=== PATIENT | male | born 1960 | race African-American/Black ===

== ENCOUNTER 2017-11-22 08:14 | Emergency (ER) | payer OTHER ==
[~2017-11-22] VITALS: Ht 185.4 cm; Wt 78.0 kg
[2017-11-22] MEDS ORDERED: IBUPROFEN 600MG TABLET PO ONE (09:30)
[2017-11-22 09:33] VITALS: BP 130/84
[2017-11-22 09:44] LABS: CLARITY URINE CLEAR (CLEAR); COLOR URINE YELLOW (YELLOW); KETONES URINE NEGATIVE (NEGATIVE); LEUKOCYTE ESTERASE URINE 2+ (NEGATIVE); NITRITE URINE NEGATIVE (NEGATIVE); OCCULT BLOOD URINE 2+ (NEGATIVE); PH URINE 5.5 (4.5-8.0); PROTEIN URINE NEGATIVE (NEGATIVE); SPECIFIC GRAVITY URINE 1.021 (1.005-1.030); UROBILINOGEN URINE 0.2 E.U./dL (0.2-1.0)
== END 2017-11-22 11:21 | disposition home or self-care (01) ==
LOC: ER 10:48
DX: N39.0 Urinary tract infection, site not specified (principal); M54.32 Sciatica, left side; F17.200 Nicotine dependence, unspecified, uncomplicated
CPT/HCPCS: 81003; 87086; 99284

== ENCOUNTER 2017-11-29 19:36 | Emergency (ER) | payer OTHER ==
[~2017-11-29] VITALS: Ht 185.4 cm; Wt 77.0 kg
[2017-11-30 02:16] LABS: CLARITY URINE CLOUDY (CLEAR); COLOR URINE YELLOW (YELLOW); KETONES URINE NEGATIVE (NEGATIVE); LEUKOCYTE ESTERASE URINE 2+ (NEGATIVE); NITRITE URINE POSITIVE (NEGATIVE); OCCULT BLOOD URINE 3+ (NEGATIVE); PH URINE 5.5 (4.5-8.0); PROTEIN URINE TRACE (NEGATIVE)
[2017-11-30 04:37] VITALS: BP 121/67
== END 2017-11-30 04:37 | disposition home or self-care (01) ==
LOC: ER 22:02
DX: N39.0 Urinary tract infection, site not specified (principal); F17.200 Nicotine dependence, unspecified, uncomplicated; F12.10 Cannabis abuse, uncomplicated; Z98.890 Other specified postprocedural states
CPT/HCPCS: 74176; 81003; 87077; 87086; 87186; 99285

== ENCOUNTER 2022-10-21 00:31 | Emergency (ER) | payer OTHER ==
[~2022-10-21] VITALS: Ht 185.4 cm; Wt 79.5 kg
[2022-10-21 01:15] LABS: BASOPHILS % 0.9 % (0.0-2.0); EOSINOPHILS % 1.7 % (0.0-5.0); HEMATOCRIT. 43.2 % (42.0-52.0); HEMOGLOBIN. 14.2 g/dL (14.0-18.0); LYMPHOCYTES % 39.5 % (20.0-50.0); MEAN CORPUSCULAR HEMOGLOBIN 30.5 pg (28.0-32.0); MEAN CORPUSCULAR VOLUME 92.7 fL (80.0-94.0); MEAN PLATELET VOLUME 8.2 fl (7.4-10.4); MONOCYTES % 6.7 % (2.0-8.0); NEUTROPHILS % 51.2 % (40.0-76.0); PLATELET 225 x1000/uL (130-400); RED BLOOD CELL COUNT 4.67 mill/uL (4.7-6.1); RED CELL DISTRIBUTION WIDTH 14.1 % (11.6-14.6)
[2022-10-21 01:34] LABS: CHLORIDE 107 mEq/L (98-107)
[2022-10-21 01:46] LABS: ETHANOL BLOOD < 10 mg/dL
[2022-10-21 03:00] LABS: *AMPHETAMINES SCREEN URINE NEGATIVE (NEGATIVE); *BARBITURATES SCREEN URINE NEGATIVE (NEGATIVE); *BENZODIAZEPINES SCREEN URINE NEGATIVE (NEGATIVE); *COCAINE SCREEN URINE NEGATIVE (NEGATIVE); CANNABINOID URINE SCREEN PRESUMTIVE POSITIVE (NEGATIVE); METHADONE URINE SCREEN NEGATIVE (NEGATIVE); OPIATES URINE SCREEN NEGATIVE (NEGATIVE); PHENCYCLIDINE URINE SCREEN NEGATIVE (NEGATIVE)
[2022-10-21] MEDS ORDERED: ACET-2708 MT (03:43)
[2022-10-21] MEDS ORDERED: TETANUS, DIPHTHERIA, PERTUSSIS VAC/PF 0.5ML (>10YR OLD) IM ONE (04:00)
[2022-10-21 04:09] VITALS: BP 109/54
== END 2022-10-21 04:11 | disposition home or self-care (01) ==
LOC: ER 00:31
DX: R55 Syncope and collapse (principal); S01.81XA Laceration without foreign body of other part of head, initial encounter; I10 Essential (primary) hypertension; Z98.890 Other specified postprocedural states; Z13.9 Encounter for screening, unspecified; W18.30XA Fall on same level, unspecified, initial encounter; Y93.89 Activity, other specified; Y92.89 Other specified places as the place of occurrence of the external cause; Y99.8 Other external cause status
CPT/HCPCS: 12011; 36415; 71045; 80053; 80305; 80320; 83880; 84484; 85025; 90471; 90715; 93005; 99285; G0480

== ENCOUNTER 2022-10-26 06:32 | Emergency (ER) | payer OTHER ==
[~2022-10-26] VITALS: Ht 185.4 cm; Wt 82.6 kg
[~2022-10-26 06:32] MED LIST: ACET-2708 MT
[2022-10-26 06:37] VITALS: BP 125/81
== END 2022-10-26 08:24 | disposition home or self-care (01) ==
LOC: ER 06:32
DX: S01.81XD Laceration without foreign body of other part of head, subsequent encounter (principal); X58.XXXD Exposure to other specified factors, subsequent encounter
CPT/HCPCS: 99281; Z7610